=== PATIENT | male | born 1980 | race African-American/Black ===

== ENCOUNTER 2017-01-01 09:02 | Emergency (ER) | payer MEDICAID ==
[~2017-01-01] VITALS: Ht 180.3 cm; Wt 104.1 kg
[2017-01-01 09:12] VITALS: BP 116/75
[2017-01-01] MEDS ORDERED: LIDOCAINE 1%, 20ML SQ ONE (10:00)
[2017-01-01] MEDS ORDERED: DIPH,PERTUSS(ACELL),TET VAC/PF 0.5 ML IM-VACC ONE ×2 (10:00→10:31)
[2017-01-01] MEDS ORDERED: LIDOCAINE 1%, 20ML ONE (10:31)
[2017-01-01] MEDS ORDERED: BACITRACIN ZINC OINT 500U/GM, 0.9 GM ONE (10:54)
== END 2017-01-01 11:01 | disposition home or self-care (01) ==
LOC: ED 10:40
DX: S05.41XA Penetrating wound of orbit with or without foreign body, right eye, initial encounter (principal); W19.XXXA Unspecified fall, initial encounter; Y93.89 Activity, other specified; Y99.8 Other external cause status; Y92.410 Unspecified street and highway as the place of occurrence of the external cause
CPT/HCPCS: 12013; 70486; 90471; 90715; 93005